=== PATIENT | female | born 1985 | race Caucasian/White ===

== ENCOUNTER 2021-02-10 21:47 | Emergency (ER) | payer MEDICAID ==
[~2021-02-10] VITALS: Ht 162.6 cm; Wt 76.2 kg
[2021-02-10 21:53] VITALS: BP 149/101
--- NOTE | 2021-02-10 22:05 | NUR ---
PT AMBULATED TO BED 09.
--- NOTE | 2021-02-10 22:15 | NUR ---
PATIENT STATES SHE HAD TUMMY TUCK COSMETIC SURGERY 13 DAYS AGO, HAS NOTED PUSS/DISCHARGE FROM SURGICAL SITE FOR 1 DAY. DENIES ANY FEVER OR PAIN AT HOME. IS CURRENTLY TAKING TWO ANTIBIOTICS PRESCRIBED FROM SURGEON IN [place]. NO OTHER COMPLAINTS AT THE MOMENT. NO SIGNS OF ACUTE DISTRESS. PMH: NONE
[2021-02-10] MEDS ORDERED: SULF-59 PO (23:24)
[2021-02-10] MEDS ORDERED: SULFAMETH/TRIMETH DS 800/160MG 1 TAB PO ONE (23:25)
== END 2021-02-10 23:50 | disposition home or self-care (01) ==
LOC: MED 21:47
DX: L03.311 Cellulitis of abdominal wall (principal); L02.211 Cutaneous abscess of abdominal wall; Z88.0 Allergy status to penicillin; Z79.899 Other long term (current) drug therapy; Z98.890 Other specified postprocedural states
CPT/HCPCS: 99283